=== PATIENT | male | born 1950 | race Caucasian/White ===

== ENCOUNTER 2016-04-22 09:24 | Inpatient (IN) | payer OTHER ==
[2016-04-22] MEDS ORDERED: HYDROmorphONE/DILAUDID 1 MG/ML SYR IVP ONE ×2 (09:37→12:17)
[2016-04-22] MEDS ORDERED: NS 1,000 ML IV ONE (09:37)
--- NOTE | 2016-04-22 09:46 | EDPHY ---
H & P Time Seen by Provider: 04/22/16 09:35 HPI/ROS: CHIEF COMPLAINT: Shoulder pain, abdominal pain HISTORY OF PRESENT ILLNESS: This is a 65-year-old gentleman with history of prostate cancer, status post radical prostatectomy, with metastases to bone presents with 1 and half days of discomfort in his right shoulder and trapezius area along with right upper quadrant and right lower quadrant discomfort. Patient has had nausea but no vomiting. Pain significantly increases with respirations, and movement. No change with food. Patient has not had metastases other than bony mets documented previously. No prior history of similar discomfort. He describes pain in his right upper quadrant and up underneath his rib cage which increases with respirations. He also reports right lower quadrant pain, increased to palpation. States that his right shoulder and lateral neck area feel full. No swelling noted in the right arm. Mild headache for the last day and a half. No fevers or chills, no cold symptoms, no palpitations, no vomiting or diarrhea. No urinary complaints. No lightheadedness. Pain was significantly worse this morning. Patient also has history of asthma was trying to use his inhaler he reported that the discomfort in his right shoulder area and right upper quadrant was more that he could handle. Patient received fentanyl EN route. REVIEW OF SYSTEMS: Aside from elements discussed in the HPI, a comprehensive 10-point review of systems was reviewed and is negative. PAST MEDICAL HISTORY: Asthma, prostate cancer, bony metastases. SOCIAL HISTORY: Patient is . Nonsmoker. VITAL SIGNS Reviewed by me. Noted to be tachycardic to the 120-130 range. O2 sat 88%. Afebrile. GENERAL: Overweight gentleman, alert, no obvious distress currently. HEENT: Atraumatic. Eyes: No icterus, no injection. Mouth: moist mucous membranes. No erythema or lesions. Neck: supple with no adenopathy. Questionable fullness over the right trapezius area. LUNGS: Clear to auscultation bilaterally, no wheezes, rhonchi or rales. CARDIAC: Tachycardic but regular. ABDOMEN: Soft, obese. Tender to palpation in the right upper quadrant and right lower quadrant. No guarding or rebound. No distension. BACK: No CVA tenderness. EXTREMITIES: No trauma. No edema. Range of motion is normal throughout. NEURO: Alert and oriented, grossly nonfocal. SKIN: Warm and dry, no rash. PSYCHIATRIC: Normal mentation, no agitation. Source: Patient Constitutional: Initial Vital Signs Temperature (C) 36.7 C 04/22/16 09:41 Heart Rate 114 H 04/22/16 09:41 Respiratory Rate 17 04/22/16 09:41 Blood Pressure 133/108 H 04/22/16 09:41 O2 Sat (%) 88 L 04/22/16 09:41 O2 Delivery Mode Nasal Cannula O2 (L/minute) 5 Allergies/Adverse Reactions: iodine Allergy (Severe, Verified 04/22/16 20:11) Anaphylaxis Home Medications: Medication Instructions Recorded Amitriptyline HCl [Elavil 10 mg 10 mg PO Q2D 04/22/16 (*)] Calcium Carbonate [Oyster Shell 1,000 mg PO DAILY 04/22/16 Calcium 500 mg (*)] Cholecalciferol Vit D3 [Vitamin D3 2,000 units PO DAILY 04/22/16 2000 units tab (OTC)] Dexamethasone [Decadron 2 MG (*)] 2 mg PO DAILY 04/22/16 Fluticasone/Salmeter 250/50Mcg 1 puffs IH DAILY PRN 04/22/16 [Advair 250/50 (*)] Hydrocodone/Ibuprofen 1 each PO Q4-6PRN PRN 04/22/16 [Hydrocodone-Ibuprofen 7.5-200] Leuprolide Acetate [Lupron] 1 mg SQ Q92D 04/22/16 Lisinopril [Zestril 10 mg (*)] 10 mg PO Q2D 04/22/16 Prochlorperazine Maleate 10 mg PO DAILY PRN 04/22/16 [Compazine 10mg (*)] Zoledronic Acid/Mannitol&Water 4 mg IV Q21D 04/22/16 [Zometa 4 mg/100 ml Injection] fentaNYL [Duragesic 50 MCG Patch 50 mcg TD Q3D 04/22/16 (*)] oxyCODONE IR [Oxycodone Ir (*)] 10 mg PO Q3-4PRN PRN 04/22/16 Medical Decision Making - Diagnostics EKG Interpretation: 12-LEAD EKG: Please see the full report in [facility]. My interpretation: Sinus tachycardia Imaging: Results: CT scan of the abdomen pelvis was obtained. I viewed the images independently on the PACS system. I discussed the results of the study with the radiologist. Impression: Diffuse metastatic disease to the liver. Please see the full radiology report. Results: CT scan of the chest without IV contrast was obtained. I viewed the images independently on the PACS system. I discussed the results of the study with the radiologist. Impression: No significant etiology for the patient's right shoulder and right supraclavicular pain was identified. Please see the full radiology report. Results: An ultrasound scan of the right upper extremity was obtained. The results of the study were reported to me: No deep venous thrombus. I discussed the results of the study with radiologist. I discussed the results of the study with the patient. ED Course/Re-evaluation: 65-year-old male presents to the emergency department with severe right upper quadrant pain, right lower quadrant pain, as well as a sensation of fullness and pain at the top of his right shoulder. He has history of prostate cancer and has no bony metastasis. Evaluation emergency department included a CT scan of his abdomen pelvis which was remarkable for hepatic metastases. Patient also had a CT scan of his chest to evaluate for attack still sees causing his significant shoulder discomfort and upper right sided chest discomfort. This showed no acute findings. Ultrasound of the right upper extremity to evaluate for deep venous thrombus was also undertaken as the patient has complaints fullness and discomfort in his supraclavicular region on the right. This was negative. His course was discussed with the hospitalist service. He will be admitted to Dr. Faith service. Differential Diagnosis: After obtaining the patient's history and performing an examination, differential diagnosis considered included but was not limited to appendicitis, cholecystitis, gastritis, pancreatitis, kidney stones, urinary tract infections and other causes. Consult/Admit Bed Type: Dr. Adebayo Faith, med surg - Data Points Laboratory Results: Laboratory Results 04/22/16 10:04 04/22/16 10:04 Medications Given: Discontinued Medications Fentanyl (Duragesic) 50 mcg TD Q3D NITA Stop: 05/03/16 07:59 Last Admin: 04/23/16 07:50 Dose: 50 mcg Hydromorphone HCl (Dilaudid) 0.5 mg IVP EDNOW ONE Stop: 04/22/16 09:38 Last Admin: 04/22/16 10:20 Dose: 0.5 mg Hydromorphone HCl (Dilaudid) 1 mg IVP EDNOW ONE Stop: 04/22/16 12:18 Last Admin: 04/22/16 12:25 Dose: 1 mg Sodium Chloride (Ns) 1,000 mls @ 0 mls/hr IV ONCE ONE PRN Reason: Wide Open Stop: 04/22/16 09:38 Last Admin: 04/22/16 10:20 Dose: 1,000 mls Zoledronic Acid 4 mg/ Dextrose 105 mls @ 210 mls/hr IV ONCE ONE Stop: 04/23/16 09:08 Last Admin: 04/23/16 12:23 Dose: 105 mls Ondansetron HCl (Zofran) 4 mg IVP EDNOW ONE Stop: 04/22/16 12:30 Last Admin: 04/22/16 12:40 Dose: 4 mg Departure - Departure Disposition: [facility] Acute Clinical Impression: Liver metastasis, Right upper quadrant pain, Right shoulder discomfort, Prostate cancer metastatic to bone Condition: Fair
[2016-04-22 10:14] LABS: % IMMATURE GRANULYOCYTES 0.7 % (0.0-1.1); ABSOLUTE IMMATURE GRANULOCYTES 0.05 10^3/uL (0.00-0.10); ABSOLUTE NRBC COUNT 0.02 10^3/uL (0-0.01); ADD DIFF? NO; ADD MORPH? NO; ADD SCAN? NO; ATYPICAL LYMPHOCYTE FLAG 0 (0-99); FRAGMENT RBC FLAG 0 (0-99); HEMATOCRIT 42.9 % (40.0-51.0); HEMOGLOBIN 14.4 g/dL (13.7-17.5); LEFT SHIFT FLG 0 (0-99); LIPEMIA HEMOLYSIS FLAG 80 (0-99); MEAN CELL HEMOGLOBIN 32.4 pg (27.9-34.1); MEAN CELL HEMOGLOBIN CONCENTR. 33.6 g/dL (32.4-36.7); MEAN CELL VOLUME 96.4 fL (81.5-99.8); MEAN PLATELET VOLUME 9.2 fL (8.7-11.7); NRBC-AUTO% 0.3 % (0.0-0.2); PLATELET CLUMPS FLAG 20 (0-99); PLATELET COUNT 208 10^3/uL (150-400); RED BLOOD CELL COUNT 4.45 10^6/uL (4.40-6.38); RED CELL DISTRIBUTION WIDTH 15.7 % (11.5-15.2)
[2016-04-22 10:26] LABS: ALANINE AMINOTRANSFERASE 69 IU/L (21-72); ALKALINE PHOSPHATASE 217 IU/L (38-126); ANION GAP 12 mEq/L (8-16); ASPARTATE AMINOTRANSFERASE 36 IU/L (17-59); BILIRUBIN,TOTAL 0.7 mg/dL (0.1-1.4); BILIRUBIN-CONJUGATED 0.4 mg/dL (0.0-0.5); BILIRUBIN-UNCONJUGATED 0.3 mg/dL (0.0-1.1); CALCIUM 8.7 mg/dL (8.5-10.4); CARBON DIOXIDE 27 mEq/l (22-31); CHLORIDE 106 mEq/L (97-110); CREATININE 0.9 mg/dL (0.7-1.3); GLOMERULAR FILTRATION RATE > 60; GLUCOSE 97 mg/dL (70-100); POTASSIUM 3.4 mEq/L (3.5-5.2); SODIUM 145 mEq/L (134-144); TOTAL PROTEIN 6.6 g/dL (6.3-8.2)
--- NOTE | 2016-04-22 10:30 | DX ---
Portable AP Upright Chest April 22, 2016 9:49 a.m. Clinical History: 65-year-old male with dyspnea, right-sided pain, and a history of metastatic prosta te cancer. Comparison Study: MR imaging of the thoracic spine, dated February 10, 2016. Findings: There is a right IJ central venous catheter Mediport which terminates at the SVC-right atri al junction. Oxygen tubing and telemetry monitoring lead lines are present. The cardiac size is lucy l. There is some bibasilar subsegmental atelectasis. There is osteoblastic expansion of the medial po rtion of the left posterior 6th rib, as well as a small sclerotic opacity projected laterally in the left 7th rib and just medial to this, there is a rib deformity suggestive of an old healed fracture s ite. T he patient has known thoracic vertebral body metastatic involvement. There is no pneumothorax or peripheral interstitial edema. Impression: Bibasilar subsegmental atelectasis, with known osteoblastic metastatic disease.
--- NOTE | 2016-04-22 10:31 | CPEKG ---
Heart Rate: 107 RR Interval: 561 P-R Interval: 148 QRSD Interval: 82 QT Interval: 348 QTC Interval: 465 P [place]: 53 QRS [place]: -2 T Wave [place]: 33 EKG Severity - OTHERWISE NORMAL ECG - EKG Impression: SINUS TACHYCARDIA Electronically Signed By: Isamar Fagan 22-Apr-2016 18:10:50
[2016-04-22 10:38] LABS: TROPONIN I < 0.012 ng/mL (0-0.034)
--- NOTE | 2016-04-22 10:59 | CT ---
CT Scan of the Abdomen and Pelvis (Without IV Contrast) Clinical Indications: Abdominal pain. History of prostatectomy and metastatic prostate cancer. Technique: No intravenous contrast was given. Multidetector helical CT imaging is performed from th e diaphragm to the symphysis pubis. Dose reduction techniques were utilized. Findings Abdomen: The lung bases are clear, and there is no significant pleural fluid. The liver is diffusel y infiltrated with nodules consistent with metastatic disease. No calcifications are seen in the gall bladder. The pancreas and spleen are normal. The adrenal glands and kidneys are normal. The aorta tapers normally. No stones are found. Pelvis: The urinary bladder is unremarkable. No free fluid in the pelvis. No masses are identifie d. Prostate has been surgically removed. Moderate amount of stool is present throughout the cecum and transverse colon. Descending colon and sigmoid are relatively decompressed. Bones: Bony blastic lesions are seen in the lumbar spine including the mid L1 body, posterior body, a nd pedicle of L2, anterior and midbody of L3, and scattered small punctate blastic lesions throughout the pelvis. Some these may represent bone islands but I suspect most of these are metastatic prostat e nodules. Impressions 1. Patchy basilar atelectatic versus consolidative change. 2. Diffuse metastatic disease to the liver. Although this probably represents prostate metastasis ano ther source such as a colon cancer could be considered. If the patient has not had recent colonoscopy , it is recommended. 3. Diffuse bony metastatic disease of the spine and pelvis, as described above. Critical results relayed by Dr. Bunch to Dr. Fagan April 22, 2016, 10:52 a.m.
--- NOTE | 2016-04-22 11:49 | CT ---
CT Chest, Without Contrast History: Right upper chest pain and fullness in supraclavicular region. History of metastatic bone le sions. Comparison: CT abdomen and pelvis also performed today and MRI thoracic spine of January 2016. Technique: 5 mm helical images were obtained of the chest from the lung apices through the lung bases . This was done without intravenous contrast given the patient's history ALLERGY to iodinated contra st. Dose reduction measures were utilized. Findings: Multiple sclerotic lesions are seen in the spine and ribs compatible with osseous metastati c disease. There is no evidence for soft tissue mass, abnormal fluid collection, or lymphadenopathy i n the supraclavicular region or axillary region. No significant mediastinal or hilar lymphadenopathy. Vascular calcifications are seen in the coronary arteries indicating atherosclerotic disease. Heart size is within normal limits. No evidence for pericardial effusion. Atelectasis is seen at both lung bases posteriorly. There is little more airspace consolidation on the right and an underlying pneumon ia cannot be excluded. Multiple liver lesions are seen, as described on the CT abdomen report. Impressions 1. Evidence of osseous metastatic disease. Hepatic metastatic disease is described in the CT abdomen and pelvis report. 2. Evidence of atherosclerotic disease in the coronary arteries. 3. Atelectasis in both lung bases with a little more consolidation on the right, and underlying pneum onia cannot be excluded. Results discussed with Dr. Isamar Fagan.
--- NOTE | 2016-04-22 12:25 | US ---
Right Upper Extremity Venous Doppler Ultrasound April 22, 2016 11:52 a.m. Indication: Right arm pain and swelling. Findings: The right internal jugular vein, innominate, subclavian, axillary, basilic, brachial, and c ephalic veins are patent, competent, and compressible. There is normal duplex flow. Normal augmentati on is present. Normal compressibility is present. The left subclavian vein is patent and competent imaged for comparison. Impression: No evidence of right upper extremity venous thrombosis. Results relayed by Dr. Bunch to Dr. Fagan on April 22, 2016 at 1221 hours.
[2016-04-22] MEDS ORDERED: ONDANSETRON 4 MG/2 ML VIAL IVP ONE (12:29)
[2016-04-22] MEDS ORDERED: HYDROCODONE/APAP 5/325 TAB PO PRN ×2 (16:55)
[2016-04-22] MEDS ORDERED: LORazepam 0.5 MG TAB PO PRN (16:55)
[2016-04-22] MEDS ORDERED: POLYETHYLENE GLYCOL 3350 17 GM PKT PO PRN (16:55)
[2016-04-22] MEDS ORDERED: ONDANSETRON 4 MG/2 ML VIAL IVP PRN (16:55)
[2016-04-22] MEDS ORDERED: diphenhydrAMINE 25 MG CAP PO PRN (16:55)
[2016-04-22] MEDS ORDERED: MAGNESIUM HYDROXIDE 30 ML UDCUP PO PRN (16:55)
[2016-04-22] MEDS ORDERED: ZOLPIDEM TARTRATE 5 MG TAB PO PRN (16:55)
[2016-04-22] MEDS ORDERED: BISACODYL 10 MG SUPP PR PRN (16:55)
[2016-04-22] MEDS ORDERED: ACETAMINOPHEN 325 MG TAB PO PRN (16:55)
[2016-04-22] MEDS ORDERED: LACTULOSE 20 GM/30 ML UDCUP PO PRN (16:55)
[2016-04-22] MEDS ORDERED: ONDANSETRON DISINTEGRATING 4 MG TAB PO PRN (16:55)
[2016-04-22] MEDS ORDERED: LORazepam 2 MG/ML INJ IVP PRN (16:55)
[2016-04-22] MEDS ORDERED: NALOXONE HCL 0.4 MG/ML INJ IVP PRN (16:55)
[2016-04-22] MEDS ORDERED: FLUTICASONE/SALMETER 250/50MCG DISKUS IH PRN (17:01)
[2016-04-22] MEDS ORDERED: ZOLEDRONIC ACID IV SCH (17:15)
[2016-04-22] MEDS ORDERED: MANNITOL IV SCH (17:15)
[2016-04-22] MEDS ORDERED: WATER IV SCH (17:15)
[2016-04-22] MEDS: oxyCODONE IR 5 MG TAB PO PRN ×2 (17:16→23:24)
[2016-04-22] MEDS: ACETAMINOPHEN 325 MG TAB PO PRN ×2 (17:17→23:24)
--- NOTE | 2016-04-22 17:19 | GHP ---
[f rep st] HISTORY AND PHYSICAL DATE OF ADMISSION: 04/22/2016 CHIEF COMPLAINT: Right upper quadrant abdominal pain. HPI: This is a 65-year-old male with an 11-12 year history of prostate cancer, status post radical p rostatectomy with known metastases to the bone. Gentleman presents with a 2-3 day history of right-s ided abdominal pain, specifically in the right upper quadrant and some in the right lower quadrant, a ssociated with a feeling of slight weakness, maybe nausea, perhaps a slight decrease in his appetite, but no vomiting, diarrhea. He also has a very mild headache described as bitemporal, but perhaps wo rse on the right than the left. His abdominal pain is rated at times between 8 and 9 out of 10. He has had no recent cough, fever, chills, or shortness of breath. The pain is made worse by taking de ep breaths and coughing. He also reports it is relieved with light pressure in the right upper quadr ant and worsened with deep pressure. He denies having fever, chills, sweats, or shortness of breath. He does have a history of asthma for which he uses an Advair inhaler and very rarely a Proventil in [facility]. He notes no exacerbation of any pulmonary symptoms. He denies having chest pain, either exer tional. Denies dyspnea, shortness of breath, orthopnea, or PND. Regarding his bowel function, his b owels have been slow secondary to his pain medication, but have not changed in function or color in t he last 2 weeks. He denies dysuria or frequency. PAST MEDICAL HISTORY: Asthma as noted for many years, treated with an Advair inhaler. Prostate can cer diagnosed 2005 and currently under treatment. He has had a right Achilles tendon surgical repair from which he is rehabbing over the past year. ALLERGIES: Iodine. REVIEW OF SYSTEMS: A 10-point review of systems is otherwise entirely negative, except as noted in t he HPI. I did note that he had a headache which is bitemporal, and he does not have a history of hea daches in the past. Regarding his GI function, it has not recently changed. He believes his last co lonoscopy may have been 10 years ago. Musculoskeletal denies except for the right Achilles tendon re pair. He notes no joint swelling or tenderness. Denies a history of a DVT or pulmonary embolus. 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 Tobacco: He has never used tobacco. Alcohol: He has 1 or 2 drinks of wine a year. He is and accompanied with his family here. FAMILY HISTORY: Positive for breast cancer in his mother and a cancer of unknown origin, perhaps jayne g cancer, in his father. PHYSICAL EXAM: GENERAL: This is a pleasant, alert gentleman who reports some pain, but no significa nt distress. VITAL SIGNS: He had an initial resting tachycardia of 120-130 with 88% saturation on r oom air, and he was afebrile. HEENT: Shows that his mouth shows no lesions. Buccal mucosa is lucy l and moist. Neck is supple without meningismus. He notes he has a bitemporal frontal headache, and there are no signs of scalp trauma. NECK: Supple without signs of meningismus. LUNGS: Show dimin ished breath sounds with perhaps increased dullness in the right base without E to A or egophony. I cannot hear any rales in his right base. His left base is clear. HEART: Has a regular rate and rhy thm. Normal S1, physiologically split S2. No murmur, gallop, or rub. ABDOMEN: Slightly overweight . Normoactive bowel sounds. There is tenderness in the right upper quadrant with an enlarged liver noted and percussing to approximately 17 or 18 cm. The liver edge is easily felt below the right lo wer quadrant and is tender without nodularity. Right lower quadrant is nontender. No masses are oth erwise noted. Spleen cannot be palpated. RECTAL: Deferred. EXTREMITIES: Showed only a trace of p eripheral edema. No cyanosis or clubbing. He has a negative Homans sign. NEUROLOGIC: Symmetric an d normal. LABORATORY: CBC is normal. D-dimer is elevated at 1.64. His electrolytes show an elevated sodium a t 145, a slightly low potassium at 3.4, an alkaline phosphatase elevated at 217, but is otherwise nor mal. Lipase is normal at 50. IMAGING PROCEDURE: CT scans of the chest and of the pelvis were reviewed by me personally and then r eviewed with Radiology. The CT scan of the chest is significant for findings of osseous metastatic d isease noted in the thoracic spine along with hepatic metastatic disease, which will be described in the CT of the abdomen. There is atelectasis in both lung bases, but worse on the right than the left and this may represent an underlying pneumonia. The CT of the abdomen revealed diffuse hepatic prob able metastatic disease with very large metastases in the right lobe. The gallbladder was not well v isualized. Kidney and adrenals appear normal without lesions. Diffuse bony metastatic disease was n oted in the spine and pelvis. A right upper extremity venous ultrasound showed no evidence of a DVT. ASSESSMENT: 1. Acute right upper quadrant pain, likely secondary to metastatic disease, most probably related to prostate but possibly of colonic origin. He has not had a colonoscopy in the last 10 years and thus , it seems possible that this could represent colonic metastatic disease. It is of note that his las t MRI of his thoracic spine showed that his osseous lesions were stable. He has been under treatment for his prostatic disease and is currently maintained on Zometa and Lupron at this time. In light o f the new finding in the liver, an ultrasound will be ordered and an ultrasound of his lower extremit ies. The ultrasound of his lower extremities is to rule out a DVT as the findings in his right lung base may represent a pulmonary infarction, although this seems highly unlikely. He was mildly hypox ic on room air at 88% saturation, though this may be just hypoventilation secondary to the pain and b reathing on his right side. 2. Right lower lung atelectasis. This could represent pneumonia, atelectasis due to hypoventilation , or possibly a pulmonary embolus with infarction. An ultrasound of the lower extremities will be or dered to search for origins of a possible clot, though it seems more probable that this is atelectasi s due to hypoventilation and splinting on the right side. At this time, I will not order the CT scan with contrast as it seems unlikely, although if the problem persists or if he develops a fever, then a CT angio would be prudent. 3. Asthma of a prolonged nature at baseline. He is not having an exacerbation of this at this time, although will continue his Advair inhaler or a similar medication. PLAN: Oncology consultation with Dr. Morgan Campbell will be requested. An ultrasound of his right u pper quadrant along with an ultrasound of the lower extremities bilaterally in search for a DVT. GI will be consulted regarding a need for a colonoscopy to search for an origin of this new metastatic d isease. A colonoscopy would be noninvasive and, if in fact we found something, more helpful than an invasive liver biopsy. DVT prophylaxis will be done with Lovenox. Code status is full code. Patient's POA is his . /[id number]/MODL
--- NOTE | 2016-04-22 18:14 | US ---
Bilateral Lower Extremity Venous Duplex Doppler Studies Clinical Indications: 65-year-old male with hypoxia, and an elevated d-dimer. Rule out DVT. Technique: A high-frequency transducer was used for compression imaging and Doppler study of the chris p veins of both legs from the upper calves to the groins. Pulsed Doppler and color Doppler were utili zed, along with various maneuvers to assess flow in the deep veins. Comparison Study: None. Findings: Right Leg: The deep veins of the groin, thigh, knee, and upper calf are displayed, and are normally compressible. Doppler flow patterns are unremarkable. There is some limitation in evaluation of the peroneal veins. There is no evidence of deep venous thrombosis. The greater saphenous vein is patent . The popliteal fossa is unremarkable. Left Leg: The deep veins of the groin, thigh, knee, and upper calf are displayed, and are normally c ompressible. Doppler flow patterns are unremarkable. There is no evidence of deep venous thrombosis . As on the contralateral side, there is some limitation in evaluation of the peroneal veins. There i s normal compression of the greater saphenous vein, without superficial thrombosis. The popliteal fos sa is unremarkable. Impression: There is no sonographic evidence of deep or superficial venous thrombosis in either lower extremity.
[2016-04-22] MEDS: DEXAMETHASONE 2 MG TAB PO SCH (18:19)
[2016-04-22] MEDS: HYDROmorphONE/DILAUDID 6 MG/30 ML PCA IV PRN (18:32)
[2016-04-22] MEDS: NS W/ 20 KCl/L 1,000 ML IV SCH (18:35)
[2016-04-22 19:12] LABS: INR 1.03 (0.83-1.16); PROTIME(PATIENT) 13.4 SEC (12.0-15.0)
[2016-04-22 20:00] LABS: COLOR YELLOW; LEUKOCYTE ESTERASE,URINE NEGATIVE (NEGATIVE); NITRITE,URINE NEGATIVE (NEGATIVE)
[2016-04-22] MEDS: SENNOSIDES/DOCUSATE SODIUM TAB PO SCH (20:11)
[2016-04-23] MEDS: NS W/ 20 KCl/L 1,000 ML IV SCH (02:05)
[2016-04-23 06:01] LABS: % IMMATURE GRANULYOCYTES 0.7 % (0.0-1.1); ABSOLUTE IMMATURE GRANULOCYTES 0.04 10^3/uL (0.00-0.10); ADD DIFF? NO; ADD MORPH? NO; ADD SCAN? NO; ATYPICAL LYMPHOCYTE FLAG 0 (0-99); FRAGMENT RBC FLAG 0 (0-99); HEMATOCRIT 37.8 % (40.0-51.0); HEMOGLOBIN 12.5 g/dL (13.7-17.5); LEFT SHIFT FLG 0 (0-99); LIPEMIA HEMOLYSIS FLAG 80 (0-99); MEAN CELL HEMOGLOBIN 32.1 pg (27.9-34.1); MEAN CELL HEMOGLOBIN CONCENTR. 33.1 g/dL (32.4-36.7); MEAN CELL VOLUME 96.9 fL (81.5-99.8); PLATELET CLUMPS FLAG 0 (0-99); PLATELET COUNT 185 10^3/uL (150-400); RED CELL DISTRIBUTION WIDTH 15.6 % (11.5-15.2)
[2016-04-23 06:13] LABS: ALANINE AMINOTRANSFERASE 58 IU/L (21-72); ALBUMIN 3.2 g/dL (3.5-5.0); ALKALINE PHOSPHATASE 156 IU/L (38-126); ANION GAP 8 mEq/L (8-16); ASPARTATE AMINOTRANSFERASE 29 IU/L (17-59); BILIRUBIN,TOTAL 0.8 mg/dL (0.1-1.4); CALCIUM 8.3 mg/dL (8.5-10.4); CARBON DIOXIDE 26 mEq/l (22-31); CHLORIDE 108 mEq/L (97-110); CREATININE 0.7 mg/dL (0.7-1.3); GLOMERULAR FILTRATION RATE > 60; GLUCOSE 120 mg/dL (70-100); POTASSIUM 4.5 mEq/L (3.5-5.2); SODIUM 142 mEq/L (134-144); TOTAL PROTEIN 5.4 g/dL (6.3-8.2)
[2016-04-23] MEDS: ACETAMINOPHEN 325 MG TAB PO PRN ×3 (06:16→17:13)
[2016-04-23] MEDS: oxyCODONE IR 5 MG TAB PO PRN ×3 (06:17→17:13)
[2016-04-23] MEDS: ENOXAPARIN 40 MG/0.4 ML SYR SC SCH (07:52)
[2016-04-23] MEDS ORDERED: fentaNYL 50 MCG PATCH TD SCH ×2 (08:00→09:00)
[2016-04-23] MEDS: SENNOSIDES/DOCUSATE SODIUM TAB PO SCH ×2 (08:01→20:47)
[2016-04-23] MEDS: DEXAMETHASONE 2 MG TAB PO SCH (08:01)
[2016-04-23] MEDS: CHOLECALCIFEROL VIT D3 2,000 UNITS TAB/CAP PO SCH (08:01)
[2016-04-23] MEDS: CALCIUM CARBONATE 500 MG TAB PO SCH (08:01)
[2016-04-23] MEDS ORDERED: ZOLEDRONIC ACID 4 MG in D5W 100 ML IV ONE (08:39)
[2016-04-23] MEDS: FLUTICASONE HFA 220 MCG MDI IH SCH (09:00)
[2016-04-23] MEDS ORDERED: FLUMAZENIL 0.5 MG/5 ML MDV IVP ONE (09:15)
[2016-04-23] MEDS ORDERED: MIDAZOLAM 2 MG/2 ML VIAL ONE (09:16)
[2016-04-23] MEDS ORDERED: fentaNYL 100 MCG/2 ML INJ ONE (09:16)
--- NOTE | 2016-04-23 09:23 | HOSPPROG ---
Hospitalist Progress Note Assessment/Plan: 65-year-old male admitted with abdominal pain and found to have new liver metastases of an unknown source. Patient is scheduled for a liver biopsy today. Throughout the night he had difficulty sleeping but denied having shortness of breath chest pain nausea vomiting fever or chills. He rates his pain an 8/10 but diminished to between 6 and 7/10 with the RESTAURANT BUSSER pump. He also notes the ability to take deeper breaths with pain relief. -liver mass, liver metastases of unknown source. Patient scheduled for liver biopsy today -hypoxemia related to pulmonary atelectasis. Patient has a history of asthma and takes Advair as an outpatient. Today I will change him to duo nebs with fluticasone inhalation cough and deep breathe and incentive spirometer -asthma currently in good control -Pain Management: Patient currently on a RESTAURANT BUSSER pump with some improvement in his pain without full control. I have continued courage the patient to use the RESTAURANT BUSSER and we can supplement with short-acting OxyContin IR as needed. The gentleman has good family support and there is no concern regarding narcotic addiction in this gentleman. -prostate cancer metastatic to bone: The liver mass may represent prostatic metastasis. Oncology has been consulted and will be following as an in and out patient. No active treatment is planned at this time until we have a biopsy of the liver mass. -DVT prophylaxis is with Lovenox and SCDs. The Lovenox was held in view of the liver biopsy. -code status full -disposition patient will likely require 1 more evening stay. He is currently hypoxic although this can be dealt with with home O2. If he tolerates a liver biopsy should be able to be discharged on 04/24. Subjective: Pain controlled has improved on the RESTAURANT BUSSER with a decline in his pain from 8 to 6/10. No complaints of fever chills sweats cough nausea or vomiting. The right upper quadrant of the abdomen continues to be painful and tender to touch Objective: Vital Signs Temp Pulse Resp BP Pulse Ox 36.6 C 85 16 128/78 H 93 04/23/16 07:57 04/23/16 07:57 04/23/16 07:57 04/23/16 07:57 04/23/16 07:57 Laboratory Results 04/23/16 05:45 04/23/16 05:45 04/22/16 04/23/16 04/24/16 05:59 05:59 05:59 Intake Total 1000 Output Total 1525 Balance -525 PT 13.4 SEC (12.0-15.0) 04/22/16 18:50 INR 1.03 (0.83-1.16) 04/22/16 18:50 - Time Spent With Patient Time Spent with Patient: greater than 35 minutes Time Spent with Patient: Greater than 35 minutes spent on this patients care, greater than 50% of time spent counseling, educating, and coordinating care regarding the above mentioned plan. - Physical Exam Constitutional: no apparent distress Eyes: PERRL, anicteric sclera Ears, Nose, Mouth, Throat: moist mucous membranes, hearing normal Cardiovascular: regular rate and rhythym, no murmur, rub, or gallop Respiratory: no respiratory distress, no rales or rhonchi, clear to auscultation , reduced air movement, other (Splinting on the right is noted) Gastrointestinal: normoactive bowel sounds, other (Liver is still easily palpable and enlarged and tender spleen cannot be palpated.) Genitourinary: no bladder fullness Neurologic: AAOx3, CN II-XII Intact Psychiatric: interacting appropriately ICD10 Worksheet Patient Problems: Problems Problem Status Diagnosed Liver metastasis Acute Prostate cancer metastatic to bone Acute Right upper quadrant pain Acute
--- NOTE | 2016-04-23 09:55 | GCON ---
[f rep st] CONSULTATION DATE OF CONSULTATION: 04/23/2016 INPATIENT ONCOLOGY CONSULTATION REQUESTING PHYSICIAN: Adebayo Faith MD. OUTPATIENT ONCOLOGIST: Azalia Philip MD. REASON FOR CONSULTATION: Prostate cancer with apparent metastatic disease to the liver. HISTORY OF PRESENT ILLNESS: Mr. Cortes is a 65-year-old man with a history of metastatic prostate ca ncer. He was diagnosed in 2009 with stage IIB disease after prostatectomy. He had metastatic disease to the bone in 2010. Since that time, he has been on a variety of therapies including docetaxel, Zyti ga, radium-223, and cabazitaxel. For the past several months he has been on Lupron alone and also re ceiving Zometa. His PSA has been stable. He has chronic pain due to the bone metastases and takes fen tanyl and oxycodone. Several days prior to admission, he began to develop some fairly severe pain in the right upper quadr ant and also in the right shoulder. He sought medical attention in the hospital. A CT revealed blasti c lesions in the bone as well as what appeared to be diffuse infiltration with nodules consistent wit h metastatic disease. CT of the chest was unrevealing. His PSA is elevated to 585, which is approxima tely double what it was a month ago. PAST MEDICAL HISTORY: 1. Prostate cancer, as described above. 2. Asthma. CURRENT MEDICATIONS: Lovenox 40 mg subcutaneous daily, fentanyl patch, Dilaudid DENTAL SERVICE CHIEF, lisinopril 10 m g every other day, Advair Diskus. ALLERGIES: No known drug allergies. FAMILY HISTORY: His mother had breast cancer. SOCIAL HISTORY: Nonsmoker, nondrinker. Lives with his . REVIEW OF SYSTEMS: Except for pertinent positives noted in the HPI, a 14-point review of systems was negative. PHYSICAL EXAMINATION: VITAL SIGNS: His temperature was 36.6, blood pressure 120/85, oxygen saturatio n 92% on 3.5 L. GENERAL: He was in no acute distress. HEENT: Sclerae are anicteric. Oropharynx is oh ar. NECK: Supple without lymphadenopathy. LUNGS: Clear to auscultation bilaterally. CARDIAC: Regular rate and rhythm. No murmurs, gallops, or rubs. ABDOMEN: Normoactive bowel sounds. Liver edge was palp able and he had tenderness in the right upper quadrant. EXTREMITIES: Without edema. SKIN: No petechia e or purpura. NEUROLOGIC: He was alert and oriented x3. LABORATORY DATA: Sodium 142, potassium 4.5, chloride 108, bicarbonate is 26, BUN 10, and creatinine 0.7. Alk phos 156, total protein 5.4, albumin 3.2, AST 29, ALT 58. PSA 585. White count 5.41, hemoglo bin 12.5, platelets 185. IMPRESSION: This is a 65-year-old man with a 5-year history of metastatic prostate cancer. He now pr esents with right upper quadrant pain, which appears to be due to diffuse infiltrative metastatic dis ease in the liver. His PSA is also up sharply. Most likely the disease in the liver represents prosta te cancer, though we are going to get a biopsy today to be sure this is not another malignancy or sim ilar process. If the biopsy confirms prostate cancer, he will need to meet with Dr. Philip to discuss treatment opti ons. He has not had XTANDI, and that can be considered. Palliative care in the setting of hospice cou ld also be considered given the nature of the disease. The patient has been having some difficulty with pain control at home. I am going to increase the teri quency of the fentanyl patch to every 2 days because its effects seem to be wearing off on the third day. We will also try to arrange palliative home care for him to provide him a little bit more suppor t at home. Thank you for this consultation. We will continue to follow the patient with you closely while he is in the hospital. Today I will also plan on giving the patient his monthly Zometa dose, which he was d ue for in clinic today. /[id number]/MODL
[2016-04-23] MEDS: IPRATROPIUM/ALBUTEROL 3 ML DEYVIAL IH SCH ×2 (12:05→18:17)
--- NOTE | 2016-04-23 17:05 | HOSPPROG ---
Hospitalist Progress Note Assessment/Plan: 65-year-old male admitted with abdominal pain and found to have new liver metastases of an unknown source. Patient is scheduled for a liver biopsy today. Throughout the night he had difficulty sleeping but denied having shortness of breath chest pain nausea vomiting fever or chills. He rates his pain an 8/10 but diminished to between 6 and 7/10 with the RECREATION ADVISER pump. He also notes the ability to take deeper breaths with pain relief. -liver mass, liver metastases of unknown source. Patient scheduled for liver biopsy today -hypoxemia related to pulmonary atelectasis. Patient has a history of asthma and takes Advair as an outpatient. Today I will change him to duo nebs with fluticasone inhalation cough and deep breathe and incentive spirometer -asthma currently in good control -Pain Management: Patient currently on a RECREATION ADVISER pump with some improvement in his pain without full control. I have continued courage the patient to use the RECREATION ADVISER and we can supplement with short-acting OxyContin IR as needed. The gentleman has good family support and there is no concern regarding narcotic addiction in this gentleman. -prostate cancer metastatic to bone: The liver mass may represent prostatic metastasis. Oncology has been consulted and will be following as an in and out patient. No active treatment is planned at this time until we have a biopsy of the liver mass. -DVT prophylaxis is with Lovenox and SCDs. The Lovenox was held in view of the liver biopsy. -code status full -disposition patient will likely require 1 more evening stay. He is currently hypoxic although this can be dealt with with home O2. If he tolerates a liver biopsy should be able to be discharged on 04/24. Subjective: no complaints. still having abdominal pain 7-10 Objective: Vital Signs Temp Pulse Resp BP Pulse Ox 36.6 C 102 H 18 136/80 H 92 04/23/16 14:00 04/23/16 16:20 04/23/16 16:20 04/23/16 14:00 04/23/16 16:20 Laboratory Results 04/23/16 05:45 04/23/16 05:45 04/22/16 04/23/16 04/24/16 05:59 05:59 05:59 Intake Total 1000 Output Total 1525 500 Balance -525 -500 PT 13.4 SEC (12.0-15.0) 04/22/16 18:50 INR 1.03 (0.83-1.16) 04/22/16 18:50 - Time Spent With Patient Time Spent with Patient: greater than 35 minutes Time Spent with Patient: Greater than 35 minutes spent on this patients care, greater than 50% of time spent counseling, educating, and coordinating care regarding the above mentioned plan. - Physical Exam Constitutional: no apparent distress, chronically ill appearing Eyes: PERRL Ears, Nose, Mouth, Throat: moist mucous membranes Cardiovascular: regular rate and rhythym, no murmur, rub, or gallop Respiratory: no respiratory distress, no rales or rhonchi, clear to auscultation Gastrointestinal: tenderness, guarding, distension, other (Liver easily tender and palpable below the cost of) Genitourinary: no bladder fullness (Phrenic angle) Skin: warm Neurologic: AAOx3, CN II-XII Intact Psychiatric: interacting appropriately ICD10 Worksheet Patient Problems: Problems Problem Status Diagnosed Liver metastasis Acute Prostate cancer metastatic to bone Acute Right upper quadrant pain Acute
--- NOTE | 2016-04-23 17:53 | CT ---
CT-Guided Liver Biopsy With Intravenous Moderate Sedation History: Prostate carcinoma, hepatic metastasis, osseous metastasis. Witnessed Consent: Witnessed informed consent was obtained after the risks, benefits, and alternative s of CT-guided liver biopsy and conscious sedation were explained to the patient and all questions we re answered. Timeout performed. Intravenous Moderate Sedation: After witnessed informed consent was obtained, Versed 2 mg and fentany l 100 mcg were administered intravenously for intravenous moderate sedation, over 30 minutes, 0940-1 010 hour with monitoring by the nurse and me. Procedure: Utilizing sterile technique and CT guidance, the right lobe hepatic metastasis with the la rgest in the posterior segment lower right lobe localized, was identified for biopsy. Skin was preppe d with ChloraPrep solution. Lidocaine with bicarbonate was used as local anesthetic. Via an intercost al approach, a 17-gauge TruGuide needle was advanced into the lesion. Inner stylette was removed. A 1 8-gauge biopsy gun was advanced coaxially into the lesion and 5 biopsy specimens were obtained. Needl es were removed. Manual hemostasis was achieved. Dose reduction techniques were utilized. Cytology pr esent then stated sufficient sampling. Postprocedure CT imaging demonstrates no evidence of hemorrhage. EBL: 1 mL. Patient tolerated the procedure well without immediate complications. Dose reduction techniques were utilized. Patient was sent to Recovery for monitoring. Postprocedure discharge instructions were give n. Specimens were sent to Pathology for analysis. Impression: 1. Successful CT-guided liver biopsy of right lobe liver metastasis. 2. Please see pathology report which is pending. Crosscutting Measure #226: Current tobacco user: No.
[2016-04-23] MEDS: HYDROmorphONE/DILAUDID 6 MG/30 ML PCA IV PRN (18:13)
[2016-04-24] MEDS: FLUTICASONE HFA 220 MCG MDI IH SCH ×4 (00:30→20:14)
[2016-04-24] MEDS: IPRATROPIUM/ALBUTEROL 3 ML DEYVIAL IH SCH ×5 (00:30→20:14)
[2016-04-24 06:03] LABS: % IMMATURE GRANULYOCYTES 0.7 % (0.0-1.1); ABSOLUTE IMMATURE GRANULOCYTES 0.03 10^3/uL (0.00-0.10); ADD DIFF? NO; ADD MORPH? NO; ADD SCAN? NO; ATYPICAL LYMPHOCYTE FLAG 30 (0-99); FRAGMENT RBC FLAG 0 (0-99); HEMATOCRIT 32.7 % (40.0-51.0); HEMOGLOBIN 10.7 g/dL (13.7-17.5); LEFT SHIFT FLG 0 (0-99); LIPEMIA HEMOLYSIS FLAG 80 (0-99); MEAN CELL HEMOGLOBIN 31.9 pg (27.9-34.1); MEAN CELL HEMOGLOBIN CONCENTR. 32.7 g/dL (32.4-36.7); MEAN CELL VOLUME 97.6 fL (81.5-99.8); MEAN PLATELET VOLUME 9.3 fL (8.7-11.7); PLATELET CLUMPS FLAG 0 (0-99); PLATELET COUNT 182 10^3/uL (150-400); RED BLOOD CELL COUNT 3.35 10^6/uL (4.40-6.38); RED CELL DISTRIBUTION WIDTH 15.1 % (11.5-15.2)
--- NOTE | 2016-04-24 08:23 | HOSPPROG ---
Hospitalist Progress Note Assessment/Plan: 65-year-old male admitted with abdominal pain and found to have new liver metastases, status post liver biopsy with a preliminary diagnosis of adenocarcinoma. He has an elevated PSA and this is presumed to be secondary to metastatic prostatic cancer. Throughout the night he had difficulty sleeping but denied having shortness of breath chest pain nausea vomiting fever or chills. He rates his pain an 8/10 but diminished to between 6 and 7/10 with the DINING ROOM SUPERVISOR pump. He also notes the ability to take deeper breaths with pain relief. -liver mass, presumed metastatic prostatic cancer. -hypoxemia related to pulmonary atelectasis. Patient has a history of asthma and takes Advair as an outpatient. Today I will change him to duo nebs with fluticasone inhalation cough and deep breathe and incentive spirometer -asthma currently in good control -Pain Management: Patient currently on a DINING ROOM SUPERVISOR pump with some improvement in his pain without full control. Today will be changed to oral pain medication of OxyContin and Oxy IR. The DINING ROOM SUPERVISOR pump will be stopped. This is in preparation for possible discharge tomorrow. -prostate cancer metastatic to bone: The liver mass may represent prostatic metastasis. Oncology has been consulted and will be following as an in and out patient. -DVT prophylaxis is with Lovenox and SCDs. The Lovenox was held in view of the liver biopsy. -code status full -disposition: If pain can be controlled with oral pain medication that he can be discharged on 04/25. At this time there is no further inpatient workup necessary other than just good pain control. The liver is significantly enlarged and causing pain. Subjective: Reports his pain is less, approximately 5 to 6/10 down from 7 to 8/ 10. He is using the incentive spirometer and coughing and deep breathing. Denies fever chills sweats chest pain nausea or vomiting. Appetite is good at this time and he is eating well. His only complaint is of constipation and we are addressing that. Objective: Vital Signs Temp Pulse Resp BP Pulse Ox 36.6 C 79 18 126/67 H 96 04/24/16 08:05 04/24/16 08:05 04/24/16 08:05 04/24/16 08:05 04/24/16 08:05 Laboratory Results 04/24/16 03:55 04/23/16 05:45 04/23/16 04/24/16 04/25/16 05:59 05:59 05:59 Intake Total 1000 1200 Output Total 1525 500 Balance -525 700 PT 13.4 SEC (12.0-15.0) 04/22/16 18:50 INR 1.03 (0.83-1.16) 04/22/16 18:50 Laboratory Tests 04/22/16 04/23/16 04/24/16 10:04 05:45 03:55 Hgb 14.4 10.7 L Prostate Specific Ag 585.00 H - Time Spent With Patient Time Spent with Patient: greater than 35 minutes Time Spent with Patient: Greater than 35 minutes spent on this patients care, greater than 50% of time spent counseling, educating, and coordinating care regarding the above mentioned plan. - Physical Exam Constitutional: no apparent distress Eyes: PERRL, anicteric sclera Ears, Nose, Mouth, Throat: moist mucous membranes, hearing normal Cardiovascular: regular rate and rhythym, no murmur, rub, or gallop Respiratory: no respiratory distress, no rales or rhonchi, clear to auscultation Gastrointestinal: tenderness, distension, other (Liver is easily palpable below the costophrenic angle and tender. Spleen cannot be palpated) Genitourinary: no bladder fullness Skin: warm Musculoskeletal: generalized weakness Neurologic: AAOx3, CN II-XII Intact Psychiatric: interacting appropriately ICD10 Worksheet Patient Problems: Problems Problem Status Diagnosed Liver metastasis Acute Prostate cancer metastatic to bone Acute Right upper quadrant pain Acute
[2016-04-24] MEDS: ACETAMINOPHEN 325 MG TAB PO PRN ×2 (08:24→18:23)
[2016-04-24] MEDS: CHOLECALCIFEROL VIT D3 2,000 UNITS TAB/CAP PO SCH (08:26)
[2016-04-24] MEDS: SENNOSIDES/DOCUSATE SODIUM TAB PO SCH ×2 (08:26→20:34)
[2016-04-24] MEDS: CALCIUM CARBONATE 500 MG TAB PO SCH (08:26)
[2016-04-24] MEDS: DEXAMETHASONE 2 MG TAB PO SCH (08:26)
[2016-04-24] MEDS: ENOXAPARIN 40 MG/0.4 ML SYR SC SCH (08:30)
[2016-04-24] MEDS ORDERED: LISINOPRIL 10 MG TAB PO SCH (09:00)
[2016-04-24] MEDS ORDERED: AMITRIPTYLINE HCL 10 MG TAB PO SCH (09:00)
--- NOTE | 2016-04-24 12:50 | SOAPPROG ---
SOAP Progress Note Assessment/Plan: Assessment: 1. End stage prostate cancer: He has end stage disease with significant liver mets. He has prior therapy with multiple prior lines of therapy. The bx reveals adenocarcinoma. As soon as his pain s better he can be discharged. Additional treatment options are few. Hospice is probably appropriate. He has not had this discussion yet. I will defer till final path is back. See if he has a neuroendocrine variant in which case PE is a good option for therapy. Plan: Pain control. 04/24/16 12:43 04/24/16 12:52 Subjective: Rodriguez is a 65 yo F with castrate reistant prostate cancer s/p docetaxel and carbazetaxel in addition to radium 222. He has had zyga and enzolutamide as well. He presents with hepatic pain due to massive liver mets. A bx was done to confirm histology. Objective: Vital Signs Temp Pulse Resp BP Pulse Ox 36.7 C 79 18 119/71 90 L 04/24/16 12:02 04/24/16 12:02 04/24/16 12:02 04/24/16 12:02 04/24/16 12:02 Laboratory Results 04/24/16 03:55 04/23/16 05:45 04/23/16 04/24/16 04/25/16 05:59 05:59 05:59 Intake Total 1000 1200 Output Total 1525 500 Balance -525 700 PT 13.4 SEC (12.0-15.0) 04/22/16 18:50 INR 1.03 (0.83-1.16) 04/22/16 18:50 Alert cushingoid Lungs clear [facility] reg ICD10 Worksheet Patient Problems: Problems Problem Status Diagnosed Liver metastasis Acute Prostate cancer metastatic to bone Acute Right upper quadrant pain Acute
[2016-04-24] MEDS ORDERED: oxyCODONE IR 5 MG TAB PO PRN (13:07)
[2016-04-24] MEDS: oxyCODONE CR 15 MG TAB PO SCH ×2 (14:40→20:35)
[2016-04-24] MEDS: NS W/ 20 KCl/L 1,000 ML IV SCH (19:08)
[2016-04-25] MEDS: ACETAMINOPHEN 325 MG TAB PO PRN (02:07)
[2016-04-25 05:35] LABS: % IMMATURE GRANULYOCYTES 0.6 % (0.0-1.1); ABSOLUTE IMMATURE GRANULOCYTES 0.02 10^3/uL (0.00-0.10); ADD DIFF? NO; ADD MORPH? NO; ADD SCAN? NO; ATYPICAL LYMPHOCYTE FLAG 10 (0-99); FRAGMENT RBC FLAG 0 (0-99); HEMATOCRIT 30.9 % (40.0-51.0); HEMOGLOBIN 10.3 g/dL (13.7-17.5); LEFT SHIFT FLG 0 (0-99); LIPEMIA HEMOLYSIS FLAG 80 (0-99); MEAN CELL HEMOGLOBIN 32.2 pg (27.9-34.1); MEAN CELL HEMOGLOBIN CONCENTR. 33.3 g/dL (32.4-36.7); MEAN CELL VOLUME 96.6 fL (81.5-99.8); MEAN PLATELET VOLUME 9.3 fL (8.7-11.7); PLATELET CLUMPS FLAG 10 (0-99); PLATELET COUNT 178 10^3/uL (150-400)
[2016-04-25] MEDS: IPRATROPIUM/ALBUTEROL 3 ML DEYVIAL IH SCH ×2 (05:42→11:54)
[2016-04-25 08:12] VITALS: BP 110/65; PULSE 68; TEMP 98
[2016-04-25] MEDS: CALCIUM CARBONATE 500 MG TAB PO SCH (08:36)
[2016-04-25] MEDS: SENNOSIDES/DOCUSATE SODIUM TAB PO SCH (08:37)
[2016-04-25] MEDS: oxyCODONE CR 15 MG TAB PO SCH (08:38)
[2016-04-25] MEDS: CHOLECALCIFEROL VIT D3 2,000 UNITS TAB/CAP PO SCH (08:38)
[2016-04-25] MEDS: ENOXAPARIN 40 MG/0.4 ML SYR SC SCH (08:39)
[2016-04-25] MEDS: DEXAMETHASONE 2 MG TAB PO SCH (08:40)
[2016-04-25] MEDS: FLUTICASONE HFA 220 MCG MDI IH SCH (08:40)
[2016-04-25] MEDS ORDERED: fentaNYL 50 MCG PATCH TD SCH (09:00)
[2016-04-25] MEDS ORDERED: fentaNYL 75 MCG PATCH TD SCH (11:00)
[2016-04-25 11:07] VITALS: O2SAT 92
[2016-04-25 12:01] VITALS: RESP 16
--- NOTE | 2016-04-25 13:35 | SOAPPROG ---
SOAP Progress Note Assessment/Plan: Assessment: 1. End stage prostate cancer: He has end stage disease with significant liver mets. He has prior therapy with multiple prior lines of therapy. The bx reveals adenocarcinoma. As soon as his pain s better he can be discharged. Additional treatment options are few. Hospice is probably appropriate. He has not had this discussion yet. I will defer till final path is back. See if he has a neuroendocrine variant in which case PE is a good option for therapy. He is going home. The final path is pending. I advised his separately that he is appropriate for hospice. She will contact hospice. Plan: Pain control. 04/24/16 12:43 04/24/16 12:52 04/25/16 13:34 Subjective: Rodriguez is a 65 yo F with castrate reistant prostate cancer s/p docetaxel and carbazetaxel in addition to radium 222. He has had zyga and enzolutamide as well. He presents with hepatic pain due to massive liver mets. A bx was done to confirm histology. Going home today. Objective: Vital Signs Temp Pulse Resp BP Pulse Ox 36.6 C 68 16 110/65 92 04/25/16 08:11 04/25/16 11:58 04/25/16 11:58 04/25/16 08:11 04/25/16 11:58 Laboratory Results 04/25/16 05:05 04/23/16 05:45 04/24/16 04/25/16 04/26/16 05:59 05:59 05:59 Intake Total 1200 3280 Output Total 500 Balance 700 3280 PT 13.4 SEC (12.0-15.0) 04/22/16 18:50 INR 1.03 (0.83-1.16) 04/22/16 18:50 ICD10 Worksheet Patient Problems: Problems Problem Status Diagnosed Liver metastasis Acute Prostate cancer metastatic to bone Acute Right upper quadrant pain Acute
--- NOTE | 2016-04-25 19:30 | GDS ---
[f rep st] DISCHARGE SUMMARY DISCHARGE DIAGNOSES: 1. End-stage prostate cancer with significant liver metastases. 2. Abdominal pain secondary to above. 3. Hypoxemia related to atelectasis in the setting of chronic narcotic use and chronic pain. 4. Controlled asthma. 5. Prostate cancer metastatic to bone. CONSULTANTS: Dr. Campbell, [facility]. HOSPITAL COURSE BY PROBLEM: Prostate cancer with liver metastases causing acute abdominal pain: The patient was admitted to the hospital for pain control , where he was treated with Dilaudid FACILITIES SUPERVISOR. Prior to discharge, he was transitioned back to Duragesic. His home dose of Duragesic was increased from 50 mcg per hour to 75 mcg per hour. He is also to increase his Oxycodone for breakthrough, from 5-10 mg to 10-20 mg as needed for abdominal pain. PHYSICAL EXAMINATION: VITAL SIGNS: On day of discharge, bp 110/65, pulse of 68 , respiratory rate 18, O2 sat of 96% on 2 L and 93% on room air. GENERAL: In no acute distress. HEART: S1, S2. LUNGS: Clear. ABDOMEN: Soft. EXTREMITIES: No edema. PERTINENT LABS AND STUDIES DONE THIS HOSPITAL STAY: CT-guided liver biopsy done on 04/22/2016: Pending pathology or cytology. DISCHARGE MEDICATIONS: Please refer to discharge medication reconciliation and [facility] for full details, as well as a preliminary list. Home medications that have been changed: 1. Duragesic was increased to 75 mcg, to be changed every 3 days. 2. Oxycodone IR was increased from 5-10 to 10-20 mg p.o. every 3 hours as needed for pain. All other medications are continued at the usual home dosages. DISCHARGE INSTRUCTIONS: The patient will be discharged home, where he should follow up with his primary oncologist to review his liver biopsy, path reports. If the pathology is consistent with neuroendocrine variant, he may have other treatment options. Otherwise, he would be appropriate for hospice. /[id number]/MODL MTDD
== END 2016-04-25 13:59 | disposition home or self-care (01) | DRG 436 ==
LOC: EDUNIT# → F3E 14:45 → OBSVTOIN 17:03 → F1N 04-23 16:49
PROVIDERS: ADMIT Internal Medicine Pulmonary Disease; ATTEND Internal Medicine Pulmonary Disease
PROC: 0FB13ZX Excision of Right Lobe Liver, Percutaneous Approach, Diagnostic (ICD-10-PCS; principal; 2016-04-23 10:15)
DX: C78.7 Secondary malignant neoplasm of liver and intrahepatic bile duct (principal); J98.11 Atelectasis; C79.51 Secondary malignant neoplasm of bone; C61 Malignant neoplasm of prostate; R09.02 Hypoxemia; G89.29 Other chronic pain; J45.909 Unspecified asthma, uncomplicated; Z80.3 Family history of malignant neoplasm of breast
CPT/HCPCS: 96374; 97001-GP; J1170; J1650; J2250; J2310; J2405; J3010; J3489